=== PATIENT | female | born 1940 | race Caucasian/White ===

== ENCOUNTER 2016-06-15 16:15 | Inpatient (IN) | payer OTHER ==
[~2016-06-15] VITALS: Ht 157.5 cm; Wt 55.6 kg
[2016-06-15] MEDS ORDERED: ONDANSETRON 4 MG INJ IV STA (20:27)
[2016-06-15] MEDS ORDERED: morphine 2 MG INJ IV STA (20:27)
--- NOTE | 2016-06-15 20:59 | RADRPT ---
PROCEDURE: CT Head without. CLINICAL INDICATION: Headache, vomiting. TECHNIQUE: The study was performed utilizing a multi-slice, multidetector CT scanner. Direct spira l 1 mm axial sections were obtained through the head without the use of intravenous contrast materia l. Coronal and sagittal reformats were obtained. The images were reviewed on a PACS workstation. RADIATION DOSE: CTDIvol: 43.1 mGyDLP: 788.1 mGy-cm COMPARISON: No prior studies are available for comparison. FINDINGS: There is no intracranial hemorrhage, extra-axial fluid collection, mass lesion, midline shift or hyd rocephalus. There is mild prominence of the cerebral sulci, lateral and third ventricles. There is mild periventricular and subcortical white matter hypodensity. There is mild arteriosclerotic calc ification of the parasellar internal carotid arteries. The lopez-white matter differentiation is pre served. The basal cisterns are patent. The midline structures are intact. The orbits, calvarium a nd extracranial soft tissues are normal in appearance. There are severe inflammatory changes of the sphenoid sinus, with inspissated mucus. The floor of the sella is not well identified, possibly fro m the mid the chronic inflammatory changes. Underlying mass is not completely excluded. There are postoperative changes from prior sphenoid at the knee and multiple ethmoidectomies. There are moder ate inflammatory changes of the bilateral ethmoid air cells. The frontal sinuses are poorly pneumatized, normal variant. The mastoid air cells and middle ear cavities are normally aerated. T here are small calcifications involving the bilateral superior frontal lobes anteriorly the posterio r left frontal lobe, suggestive of remote prior neurocysticercosis. IMPRESSION: 1. No acute intracranial abnormality. No intracranial hemorrhage, extra-axial fluid collection, ma ss lesion or hydrocephalous. 2. Mild peripheral and central cerebral volume loss. 3. Mild periventricular and subcortical white matter hypodensity, likely related to chronic microan giopathic changes. 4. Postoperative changes from prior sphenoid surgery, with resection of the anterior wall of the sp henoids. There are moderate to severe inflammatory changes of the sphenoid sinus, with inspissated mucus. There is subsequent thinning of the floor of the sella, without definite evidence of mass or erosion. MRI may be helpful for further evaluation. 5. Small calcifications in the bilateral anterior frontal lobes, likely related to remote prior rhonda rocysticercosis. RPTAT: HGAS .Richard Kingston MD, MD Date Time Electronically viewed and signed by .Richard Kingston MD, MD on 06/15/2016 20:59 .S/
[2016-06-15 21:39] LABS: BASOPHIL # 0.1 10^3/ul (0.0-0.1); BASOPHILS % 1.2 % (0.0-2.0); EOSINOPHILS # 0.3 10^3/ul (0.0-0.5); EOSINOPHILS % 3.6 % (0.0-7.0); HEMATOCRIT 37.5 % (37.0-47.0); HEMOGLOBIN 12.3 g/dl (12.0-16.0); LYMPHOCYTES # 1.4 10^3/ul (0.8-2.9); LYMPHOCYTES % 14.5 % (15.0-51.0); MEAN CORPUSCULAR HEMOGLOBIN 29.1 pg (29.0-33.0); MEAN CORPUSCULAR HGB CONC 32.8 g/dl (32.0-37.0); MEAN CORPUSCULAR VOLUME 88.6 fl (82.0-101.0); MEAN PLATELET VOLUME 8.7 fl (7.4-10.4); MONOCYTE # 0.7 10^3/ul (0.3-0.9); MONOCYTES % 6.8 % (0.0-11.0); NEUTROPHIL # 7.1 10^3/ul (1.6-7.5); NEUTROPHILS % 73.9 % (39.0-77.0); PLATELET COUNT 416 10^3/UL (140-440); RED BLOOD COUNT 4.23 10^6/ul (4.20-5.40); UNCORRECTED WBC 9.6 10^3/ul (4.8-10.8); WHITE BLOOD COUNT 9.6 10^3/ul (4.8-10.8)
[2016-06-15 21:41] LABS: CONDITION 1
[2016-06-15 21:55] LABS: ALBUMIN 3.7 g/dl (3.3-4.9); POTASSIUM 3.8 mmol/L (3.5-5.1)
[2016-06-15 21:57] LABS: ALBUMIN/GLOBULIN RATIO 1.02; BILIRUBIN,INDIRECT 0.2 mg/dl (0-1.1); BILIRUBIN,TOTAL 0.2 mg/dl (0.2-1.3); CREATININE 0.56 mg/dl (0.44-1.00); TOTAL PROTEIN 7.3 g/dl (6.1-8.1)
[2016-06-15 21:58] LABS: CALCIUM 9.2 mg/dl (8.4-10.2)
[2016-06-15] MEDS ORDERED: OMEP20CA16 PO (22:05)
[2016-06-15] MEDS ORDERED: BENA20TA48 PO (22:05)
[2016-06-15] MEDS ORDERED: NAPR220T30 PO (22:07)
[2016-06-15] MEDS ORDERED: SOD CHLORIDE 0.9% 1,000 ML IV ONE (22:17)
[2016-06-15] MEDS ORDERED: ACETAMINOPHEN 325 MG TAB PO PRN (23:00)
[2016-06-15] MEDS ORDERED: ONDANSETRON 4 MG INJ IV PRN (23:00)
--- NOTE | 2016-06-15 23:00 | ERA ---
ER Documentation Chief Complaint Date/Time DATE: 06/15/16 TIME: 22:58 Chief Complaint VOMITING,HEADACHE,S/P PITUITARY GLAND SURGERY 2 WEEKS AGO. HPI 75-year-old female, hypertensive with history of pituitary adenoma status post resection 06/03/2016 ambulatory to the ED for evaluation of headache with nausea , vomiting and diarrhea. She has been having ongoing, generalized, mild to moderate headache since the surgery that I believe by Naprosyn but worsening over the last 2 days with nausea, and multiple episodes of nonbloody, nonbilious emesis and watery diarrhea. No ill contacts, recent travel or spelled food exposure. No visual changes, focal weakness or numbness. Denies chest pain or palpitations. No shortness of breath or cough. Denies abdominal pain or back pain. No dysuria, polyuria hematuria. No fevers or chills per ROS All systems reviewed and are negative except as per history of present illness. Medications Home Meds Reported Medications Naproxen* (Naproxen*) 220 Mg Tablet, 220 MG PO DAILY Y for PAIN, TAB 06/15/16 Omeprazole* (Omeprazole*) 20 Mg Capsule.dr, 20 MG PO DAILY Y for PRN, #30 CAP 06/15/16 Benazepril Hcl* (Benazepril Hcl*) 20 Mg Tablet, 20 MG PO QAM, #30 TAB 06/15/16 Allergies Allergies: Coded Allergies: Penicillins (Unverified Allergy, Unknown, 06/15/16) Uncoded Allergies: PCN (Allergy, Intermediate, facial swelling, 06/15/16) PMhx/Soc Reviewed in chart. As per HPI History of Surgery: Yes (pituary gland(06/03/2016), back surgery) Anesthesia Reaction: No Hx Neurological Disorder: No Hx Respiratory Disorders: No Hx Cardiac Disorders: Yes (HTN) Hx Psychiatric Problems: No Hx Miscellaneous Medical Probl: No Hx Alcohol Use: No Hx Substance Use: No Hx Tobacco Use: No Smoking Status: Never smoker FmHx No stroke or cancer Physical Exam Vitals Vital Signs Date Time Temp Pulse Resp B/P Pulse Ox O2 Delivery O2 Flow Rate FiO2 06/15/16 16:48 98.2 96 18 174/88 98 Physical Exam Const: [] Head: Atraumatic Eyes: Normal Conjunctiva ENT: Normal External Ears, Nose and Mouth. Neck: Full range of motion..~ No meningismus. Resp: Clear to auscultation bilaterally Cardio: Regular rate and rhythm, no murmurs Abd: Soft, non tender, non distended. Normal bowel sounds Skin: No petechiae or rashes Back: No midline or flank tenderness Ext: No cyanosis, or edema Neur: Awake and alert Psych: Normal Mood and Affect Result Diagram: 06/16/1661706/16/1618 Results 24 hrs Laboratory Tests Test 06/15/16 20:56 Alanine Aminotransferase (ALT/SGPT) 25IU/L Albumin 3.7g/dl Albumin/Globulin Ratio 1.02 Alkaline Phosphatase 109IU/L Anion Gap 14 Aspartate Amino Transf (AST/SGOT) 32IU/L Basophils # 0.110^3/ul Basophils % 1.2% Blood Urea Nitrogen 9mg/dl Calcium Level 9.2mg/dl Carbon Dioxide Level 26mmol/L Chloride Level 89mmol/L Creatinine 0.56mg/dl Direct Bilirubin 0.00mg/dl Eosinophils # 0.310^3/ul Eosinophils % 3.6% Globulin 3.60g/dl Glucose Level 106mg/dl Hematocrit 37.5% Hemoglobin 12.3g/dl Indirect Bilirubin 0.2mg/dl Lipase 120U/L Lymphocytes # 1.410^3/ul Lymphocytes % 14.5% Mean Corpuscular Hemoglobin 29.1pg Mean Corpuscular Hemoglobin Concent 32.8g/dl Mean Corpuscular Volume 88.6fl Mean Platelet Volume 8.7fl Monocytes # 0.710^3/ul Monocytes % 6.8% Neutrophils # 7.110^3/ul Neutrophils % 73.9% Nucleated Red Blood Cells # 0.010^3/ul Nucleated Red Blood Cells % 0.0/100WBC Platelet Count 88422^3/UL Potassium Level 3.8mmol/L Red Blood Count 4.2310^6/ul Red Cell Distribution Width 14.0% Sodium Level 125mmol/L Total Bilirubin 0.2mg/dl Total Protein 7.3g/dl White Blood Count 9.610^3/ul Current Medications Medications (Trade) Dose Ordered Sig/Johnathan Route PRN Reason Start Time Stop Time Status Last Admin Dose Admin Morphine Sulfate (morphine) 2 mg ONCE STAT IV 06/15/16 20:27 1/30/17 20:31 DC Ondansetron HCl 4 mg 4 mg ONCE STAT IV 06/15/16 20:27 06/15/16 20:31 DC 06/15/16 21:03 Sodium Chloride (NS) 1,000 ml @ 75 mls/hr [id number] ONCE IV 06/15/16 22:17 06/16/16 03:38 DC 06/15/16 23:13 Procedures/MDM DOCUMENTS REVIEWED: ED nurse, no prior records MEDICAL DECISION MAKIN-year-old female, hypertensive with history of pituitary adenoma status post resection 06/03/2016 ambulatory to the ED for evaluation of headache with nausea, vomiting and diarrhea. CT of the brain reveals postsurgical inflammatory changes. Patient with hyponatremia likely secondary to dehydration. Normal saline infusion initiated. Nausea, vomiting and diarrhea possibly due to gastroenteritis. C. difficile is pending. Abdominal exam is benign without rebound, guarding or other signs of peritonitis. No evidence for an occult infectious process. Patient be admitted to [facility] for further evaluation and management. Counseled patient and family regarding diagnosis, diagnostic results and plan for admission. PATIENT CARE TRANSITIONED: Time 22:50, Dr. Rothman Departure Diagnosis: Primary Impression: Hyponatremia Additional Impressions: Nausea vomiting and diarrhea History of pituitary adenoma Condition: JAKE Ramon MD Jun 15, 2016 23:00 PATIENT CARE TRANSITIONED: Time 22:50, Dr. Rothman Departure Diagnosis: Primary Impression: Hyponatremia Additional Impressions: Nausea vomiting and diarrhea History of pituitary adenoma Condition: JAKE Ramon MD Jun 15, 2016 23:00
[2016-06-15 23:39] VITALS: TEMP 98.2
[2016-06-15 23:59] LABS: POTASSIUM 4.1 mmol/L (3.5-5.1)
[2016-06-16] VITALS (11 sets, daily range): BP systolic 134–147; BP diastolic 76–83; PULSE 44–81; RESP 18–20; Ht 157.5 cm; Wt 55.6 kg
[2016-06-16 00:02] LABS: CREATININE 0.56 mg/dl (0.44-1.00)
[2016-06-16 00:03] LABS: CALCIUM 8.7 mg/dl (8.4-10.2)
[2016-06-16] MEDS ORDERED: hydrALAzine 20 MG INJ IV PRN (03:00)
[2016-06-16] MEDS ORDERED: ONDANSETRON 4 MG INJ IV PRN (03:00)
[2016-06-16] MEDS ORDERED: ACETAMINOPHEN 325 MG TAB PO PRN (03:00)
[2016-06-16] MEDS: SOD CHLORIDE 0.9% 1,000 ML IV SCH ×2 (03:49→12:47)
[2016-06-16] MEDS: SODIUM CHLORIDE 1 GM TAB PO ONE ×2 (04:00→06:47)
[2016-06-16 07:08] LABS: BASOPHIL # 0.1 10^3/ul (0.0-0.1); BASOPHILS % 0.9 % (0.0-2.0); EOSINOPHILS # 0.3 10^3/ul (0.0-0.5); EOSINOPHILS % 4.3 % (0.0-7.0); HEMATOCRIT 30.5 % (37.0-47.0); HEMOGLOBIN 10.4 g/dl (12.0-16.0); LYMPHOCYTES # 1.3 10^3/ul (0.8-2.9); LYMPHOCYTES % 20.3 % (15.0-51.0); MEAN CORPUSCULAR HEMOGLOBIN 29.7 pg (29.0-33.0); MEAN CORPUSCULAR HGB CONC 34.1 g/dl (32.0-37.0); MEAN CORPUSCULAR VOLUME 87.1 fl (82.0-101.0); MONOCYTE # 0.7 10^3/ul (0.3-0.9); MONOCYTES % 10.4 % (0.0-11.0); NEUTROPHIL # 4.1 10^3/ul (1.6-7.5); NEUTROPHILS % 64.1 % (39.0-77.0); PLATELET COUNT 396 10^3/UL (140-440); RED CELL DISTRIBUTION WIDTH 13.7 % (11.5-14.5); UNCORRECTED WBC 6.4 10^3/ul (4.8-10.8); WHITE BLOOD COUNT 6.4 10^3/ul (4.8-10.8)
[2016-06-16 07:34] LABS: ALBUMIN 2.9 g/dl (3.3-4.9)
[2016-06-16 07:35] LABS: POTASSIUM 4.2 mmol/L (3.5-5.1)
[2016-06-16 07:37] LABS: ALBUMIN/GLOBULIN RATIO 1.11; BILIRUBIN,INDIRECT 0.1 mg/dl (0-1.1); BILIRUBIN,TOTAL 0.1 mg/dl (0.2-1.3); CREATININE 0.57 mg/dl (0.44-1.00); TOTAL PROTEIN 5.5 g/dl (6.1-8.1)
[2016-06-16 07:38] LABS: CALCIUM 8.6 mg/dl (8.4-10.2); MAGNESIUM 1.6 mg/dl (1.7-2.5); PHOSPHORUS 3.1 mg/dl (2.5-4.9)
[2016-06-16 07:43] LABS: CONDITION 1
[2016-06-16 08:06] LABS: THYROID STIMULATING HORMONE 0.95 MIU/L (0.465-4.680)
--- NOTE | 2016-06-16 08:23 | HP ---
DATE OF ADMISSION: 06/15/2016 TIME SEEN: 2330 hours. CHIEF COMPLAINT: Headache, nausea and vomiting. HISTORY OF PRESENT ILLNESS: The patient is a 75-year-old female with a history of hypertension, saundra ritis, arthritis, depression and pituitary adenoma status post surgery 2 weeks ago, who presented to the emergency department with a headache, nausea, and nonbloody, nonbilious vomiting. Headache has been diffuse and has been going on since surgery and she has been taking Naprosyn for it, but over the past 2 days, it has been progressively worsening and was associated with multiple episodes of no nbilious, nonbloody emesis, well as watery diarrhea and as such, she was brought here for evaluation . She denied any focal weakness, numbness, seizure-like activity, visual disturbance, chest pain, s hortness of breath, fever, or chills. When she presented to the ER, blood pressure was 174/88, heart rate 96, respiratory rate 18, tempera ture 98.2, oxygen saturation 98% on room air. Laboratory value shows a sodium of 125 and a chloride of 89. Otherwise, CBC and CMP are unremarkable. A brain CT was done and it showed postop change a s well as moderate to severe inflammatory change of the sphenoid sinus with ____mucous and subsequen t thinning of the floor of the sella without definite evidence of mass or erosion. Small calcificat ion in the bilateral anterior frontal lobes likely from remote neurocysticercosis also noted, otherw ise no acute intracranial abnormality. The patient was given pain medication, antiemetics and admit lindsay for further management. REVIEW OF SYSTEMS: A 12-point review of systems performed is negative except as mentioned in HPI. PAST MEDICAL HISTORY: As per HPI. PAST SURGICAL HISTORY: Recent surgery for pituitary adenoma 2 weeks ago. Also, history of back omer marina and ankle surgery. SOCIAL HISTORY: Denied a history of tobacco, alcohol or illicit drug use. ALLERGIES: PENICILLIN. HOME MEDICATIONS: 1. Benazepril. 2. Naproxen. 3. Prilosec. PHYSICAL EXAMINATION: VITAL SIGNS: Stable. GENERAL: Sleepy but arousable, otherwise no acute distress. HEENT: Normocephalic, atraumatic. Pupils are reactive to light. CARDIOVASCULAR: Regular rate and rhythm. No extra sounds. LUNGS: Clear. ABDOMEN: Soft, nontender, nondistended. Positive bowel sounds. EXTREMITIES: No edema. NEUROLOGIC: No focal deficits. LABORATORY DATA: Sodium 125, chloride 89. Otherwise, CBC and CMP are within normal limits. IMAGING: CT of the head with results as mentioned in the HPI. IMPRESSION: 1. Headache, nausea, vomiting, likely secondary to recent pituitary surgery. 2. History of pituitary adenoma, status post surgery 2 weeks ago. 3. Hyponatremia. 4. Hypertension. 5. History of gastritis. 6. History of depression. The patient's symptom of headache and the associated vomiting likely secondary to the recent surgery and also possibly from the hyponatremia. Head CT, as mentioned earlier, with no acute intracranial findings. We will consider obtaining an MRI of the brain, but for now, we will do pain management as well as antiemetics, as needed. We will place on normal saline for correction of her hyponatremi a. We will consider nephrology consult for the hyponatremia and also endocrine consult as needed. She will be evaluated by physical therapy prior to discharge. Further workup and management per clinical course. Dictated By: JACEK TRINIDAD/MARK Conf#: [id number] DID#: [id number]
[2016-06-16] MEDS: FAMOTIDINE 20 MG TAB PO SCH ×2 (08:51→21:37)
[2016-06-16] MEDS: BENAZEPRIL 20 MG TAB PO SCH (08:51)
[2016-06-16] MEDS ORDERED: MAGNESIUM OXIDE 400 MG TAB PO ONE (10:00)
[2016-06-16 12:19] LABS: ADD UMIC YES; URINE BILIRUBIN (Dip) NEGATIVE (NEGATIVE); URINE BLOOD (Dip) NEGATIVE (NEGATIVE); URINE COLOR LT. YELLOW (YELLOW); URINE GLUCOSE (Dip) NEGATIVE (NEGATIVE); URINE KETONES (Dip) NEGATIVE (NEGATIVE); URINE LEUKOCYTE ESTERASE (Dip) TRACE (NEGATIVE); URINE NITRITE (Dip) NEGATIVE (NEGATIVE); URINE TOTAL PROTEIN (Dip) NEGATIVE (NEGATIVE); URINE UROBILINOGEN (Dip) 0.2 E.U./dL (0.1-1.0)
[2016-06-16 12:32] LABS: URINE RBCS 0-2 /HPF (0)
--- NOTE | 2016-06-16 12:54 | CONS ---
DATE OF ADMISSION: 06/15/2016 DATE OF CONSULTATION: NEPHROLOGY CONSULTATION REASON FOR CONSULTATION: Hyponatremia. REQUESTING PHYSICIAN: Dr. Rothman HISTORY OF PRESENT ILLNESS: This is a 75-year-old female with a past medical history of hypertensio n, gastritis, arthritis, depression, history of pituitary adenoma, status post surgical resection ap proximately 2 weeks ago who presents to the emergency room with headache, nausea and nonbloody bilio us. The patient stated since the surgery she has been having ongoing headaches, but has been stable , tolerating p.o.'s; however, over the last 2 days the patient noted to have a progressively worseni ng headache associated with emesis as well as diarrhea. The patient was told to come into the emerg ency room for evaluation. Upon arrival in the emergency room, the patient was noted to have blood p ressure 174/88, heart rate is 96, respirations 18, temperature 98.2. In the emergency room, the pat ient noted to be hyponatremic with sodium 125. She was started on IV fluids, given antiemetics, adm itted to telemetry for further evaluation. In terms of the patient's sodium history, the patient's daughter and the patient deny any previous h istory of hyponatremia prior to her pituitary surgery. The patient states over the last 2 days that she has been eating appropriately until 1 to 2 days prior to admission when she was having headache s and complaining of emesis. She otherwise denies any seizure, any hematuria, any rashes, any froth y urine. PAST MEDICAL HISTORY: As stated above, history of hypertension, gastritis, arthritis, depression. PAST SURGICAL HISTORY: Status post pituitary adenoma removal 2 weeks ago. FAMILY HISTORY: No family history of kidney disease or heart disease. SOCIAL HISTORY: Does not drink, smoke, or do drugs. MEDICATIONS: The patient's medications have been reviewed. ALLERGIES: ALLERGIC TO PENICILLIN. REVIEW OF SYSTEMS: A 14-point review of systems was conducted. Pertinent positives as stated in HP I, otherwise negative. PHYSICAL EXAMINATION: VITAL SIGNS: Blood pressure is 139/76, respirations 20, pulse 73, temperature 98.0. HEENT: Head is normocephalic. NECK: Supple. HEART: Regular rate. LUNGS: Show diminished breath sounds at base. ABDOMEN: Soft, nontender to palpation. No rebound or guarding. EXTREMITIES: Negative for clubbing, cyanosis, no edema. DERMATOLOGIC: No rashes. MUSCULOSKELETAL: No joint effusions. NEUROLOGIC: No focal deficits. MEDICATIONS: Reviewed. LABORATORY DATA: Shows sodium 126, respiration 4.2, chloride 94, BUN 6, creatinine 0.56, magnesium 1.6. White count 6.4, hemoglobin 10.4, hematocrit 30.5, platelet count 396. CT scan of the head is reviewed. ASSESSMENT AND PLAN: This is a 75-year-old female who presents with: 1. Hyponatremia, underlying etiology is unclear. Differential is broad, including possible seconda ry adrenal insufficiency resulting hypercortisol levels which would increase antidiuretic hormone se cretion, pain-associated hyponatremia due syndrome of inappropriate antidiuretic hormone secretion. Possible volume depletion due to decreased oral intake is also a consideration. Plan at this point is to do a full workup. We will check a urine sodium, urine osmolarity, serum osmolarity. We will check a uric acid level. Will check an a.m. and random cortisol level. The patient's sodium level s have been stable on IV fluids. Will continue to monitor serial sodium levels q.4 hours. If sodiu m levels, however, should further decline, would consider discontinuing normal saline. Additionally , if patient should develop overt seizures or worsening headaches, would consider 3% sodium chloride . At this point, will monitor closely. 2. Nausea, vomiting, headaches. Etiology may be secondary to recent surgery, possible hyponatremia as a contributing factor. At this point, will continue current treatment plan. Continue supportiv e care, continue antiemetic therapy and monitor closely. 3. History of hypertension. Continue current blood pressure regimen at this time. 4. History of gastritis. Continue proton pump inhibitor. 5. Hypomagnesemia. We will replete with magnesium oxide. Thank you, Dr. Rothman, for this interesting consultation. It will be a pleasure to follow the patient with you throughout the hospital course. Dictated By: MAYA HE/MARK Conf#: [id number] DID#: [id number]
--- NOTE | 2016-06-16 17:15 | PN ---
Date/Time of Note Date/Time of Note DATE: 06/16/16 TIME: 17:11 Assessment/Plan VTE Prophylaxis VTE Prophylaxis Intervention: SCD's Lines/Catheters IV Catheter Type (from Nrs): Peripheral IV Assessment/Plan Chief Complaint/Hosp Course IMPRESSION: 1. Headache, nausea, vomiting, likely secondary to recent pituitary surgery versus hyponatremia Nephrology and endocrinology has been consulted We will consider obtaining an MRI of the brain if no improvement, but for now , we will do pain management as well as antiemetics, as needed. 2. History of pituitary adenoma, status post surgery 2 weeks ago. Endocrinology has been consulted 3. Hyponatremia. Continue IV fluid, follow-up electrolytes in a.m. 4. Hypertension. Well-controlled on medical management 5. History of gastritis. Continue PPI 6. History of depression. Further workup and management per clinical course. Problems: Subjective 24 Hr Interval Summary Free Text/Dictation Patient denies of any headache or dizziness No nausea, vomiting or diarrhea Denies any chest pain or shortness of breath Exam/Review of Systems Vital Signs Vitals Vital Signs Date Time Temp Pulse Resp B/P Pulse Ox O2 Delivery O2 Flow Rate FiO2 06/16/16 16:07 81 06/16/16 16:00 98.8 20 138/77 98 Room Air Exam General: The patient is well-developed, Not in acute distress. HEENT: Atraumatic, normocephalic. The pupils are equal and round . Neck: Supple with full range of motion. Chest: Normal expansion of the thorax during inspiration Lungs: Clear to auscultation bilaterally Heart: Normal S1-S2, Regular rhythm and rate. Abdomen: Soft , nontender, nondistended , bowel sounds are present. Extremities: Normal to inspection, no edema no cyanosis Neurologic: Normal mental status,The patient is awake, alert and oriented . Results Result Diagram: 06/16/16 0618 06/16/16 1154 Results 24 hrs Laboratory Tests Test 06/15/16 20:56 06/15/16 23:33 06/16/16 06:18 06/16/16 07:10 Alanine Aminotransferase (ALT/SGPT) 25 28 Albumin 3.7 2.9 L Albumin/Globulin Ratio 1.02 1.11 Alkaline Phosphatase 109 94 Anion Gap 14 14 11 Aspartate Amino Transf (AST/SGOT) 32 24 Basophils # 0.1 0.1 Basophils % 1.2 0.9 Blood Urea Nitrogen 9 8 6 L Calcium Level 9.2 8.7 8.6 Carbon Dioxide Level 26 25 25 Chloride Level 89 L 89 L 94 L Creatinine 0.56 0.56 0.57 Direct Bilirubin 0.00 0.00 Eosinophils # 0.3 0.3 Eosinophils % 3.6 4.3 Globulin 3.60 H 2.60 Glucose Level 106 92 79 Hematocrit 37.5 30.5 L Hemoglobin 12.3 10.4 L Indirect Bilirubin 0.2 0.1 Lipase 120 Lymphocytes # 1.4 1.3 Lymphocytes % 14.5 L 20.3 Mean Corpuscular Hemoglobin 29.1 29.7 Mean Corpuscular Hemoglobin Concent 32.8 34.1 Mean Corpuscular Volume 88.6 87.1 Mean Platelet Volume 8.7 8.0 Monocytes # 0.7 0.7 Monocytes % 6.8 10.4 Neutrophils # 7.1 4.1 Neutrophils % 73.9 64.1 Nucleated Red Blood Cells # 0.0 0.0 Nucleated Red Blood Cells % 0.0 0.0 Platelet Count 416 396 Potassium Level 3.8 4.1 4.2 Red Blood Count 4.23 3.50 L Red Cell Distribution Width 14.0 13.7 Sodium Level 125 L 124 L 126 L Total Bilirubin 0.2 0.1 L Total Protein 7.3 5.5 #L White Blood Count 9.6 6.4 # Free Thyroxine Index 1.45 Magnesium Level 1.6 L Phosphorus Level 3.1 Thyroid Stimulating Hormone (TSH) 0.950 Thyroxine (T4) 5.0 L Triiodothyronine (T3) Uptake 29.0 Urine Bilirubin NEGATIVE Urine Clarity CLEAR Urine Color LT. YELLOW Urine Glucose NEGATIVE Urine Hemoglobin NEGATIVE Urine Ketones NEGATIVE Urine Leukocyte Esterase TRACE H Urine Microscopic RBC 0-2 Urine Microscopic WBC 2-5 Urine Nitrite NEGATIVE Urine Random Creatinine 29.68 Urine Random Sodium 83 Urine Specific Kaiser 1.015 Urine Total Protein Urine Urobilinogen 0.2 E.U./dL Urine pH 7.0 Test 06/16/16 11:54 Osmolality 255 L Sodium Level 128 L Uric Acid 3.1 Medications Medications Current Medications Benazepril HCl (Lotensin) 20 mg QAM PO Last administered on 06/16/16t 08:51; Admin Dose 20 MG; Start 06/16/16 at 09:00 Famotidine (Pepcid) 20 mg BID PO Last administered on 06/16/16 08:51; Admin Dose 20 MG; Start 06/16/16 at 09:00 Ondansetron HCl (Zofran Inj) 4 mg Q6H PRN IV NAUSEA AND/OR VOMITING; Start at 03:00 Acetaminophen (Tylenol Tab) 650 mg Q6H PRN PO PAIN AND OR ELEVATED TEMP; Start 06/16/16 at 03:00 Hydralazine HCl 10 mg 10 mg Q4H PRN IV ELEVATED BLOOD PRESSURE; Start 06/16/16 at 03:00 Sodium Chloride (NS) 1,000 ml @ 100 mls/hr Q10H IV Last administered on 12:47; Admin Dose 100 MLS/HR; Start 06/16/16 at 03:00 KARSON FERMIN MD Jun 16, 2016 17:15
--- NOTE | 2016-06-16 18:09 | CONS ---
Date/Time of Note Date/Time of Note DATE: 06/16/16 TIME: 17:57 Assessment/Plan Assessment/Plan Problems: (1) Nausea vomiting and diarrhea Status: Resolved (2) Hyponatremia Status: Acute Comment: Hyponatremia is not uncommon following transsphenoidal craniotomy for pituitary surgery. Agree with nephrology to check cortisol, however doubt adrenal insufficiency in this case, especially given presenting BP. Pt. likely suffering from SIADH as a common post-op complication. From UpToDate: "Hyponatremia is also a common late complication of transsphenoidal pituitary surgery, occurring in 21 to 35 percent of cases [42,43]. Although relative cortisol deficiency may contribute, the major cause is inappropriate ADH release from the injured posterior pituitary gland. The fall in the plasma sodium concentration is most severe on the sixth to seventh postoperative day. This form of isolated hyponatremia (or isolated second phase) appears to be a subset of the classic triphasic cycle in which initial polyuria is followed by transient SIADH and then either recovery or, in severe cases, a third phase of permanent central diabetes insipidus" Will therefore d/c IVF and place pt. on 900 mL/24 hour (600 mL/m2 BSA) fluid restriction. Salt tablets should not be necessary so will d/c these. Reeval [ Na] daily. Suspect will normalize w/i 48 hours. Will f/u serum cortisol levels. 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 Had MRI and was found to have a pituitary adenoma. Pt. and daughter do not know the size. Evaluation for hormonal secretion was (- ). Pt. sent for transsphenoidal craniotomy which was done 13 days ago. Pt. went home on day after surgery to stay under 10 glasses of water a day and was given salt tablets. On day after going home pt. developed bifrontal pounding headache. No dizziness. This persisted for the next 10 days. 2 days ago developed vomiting and diarrhea which continued until yesterday when daughter decided to bring her to ER. Constitutional: improved, no complaints Eyes: no complaints ENT: no complaints Respiratory: no complaints Cardiovascular: no complaints Gastrointestinal: diarrhea, nausea, vomiting Genitourinary: no complaints Musculoskeletal: no complaints Neurologic: headache Psychological: nl mood/affect, no complaints Past Medical History Medical History: hypertension Past Surgical History Past Surgical Hx: other (lumbosacral spine surgery, L ankle surgery) Family History Significant Family History: hypertension (sister) Social History b. [facility], in [facility] 16 y, , 10 children, lifelong unemployed Alcohol Use: none Smoking Status: Never smoker Drug Use: none Exam/Review of Systems Vital Signs Vitals VS - Last 72 Hours, by Label Date Time Temp Pulse Resp B/P Pulse Ox O2 Delivery O2 Flow Rate FiO2 06/16/16 16:07 81 06/16/16 16:00 98.8 44 20 138/77 98 Room Air 06/16/16 12:04 75 06/16/16 12:00 97.6 77 20 136/83 98 Room Air 06/16/16 08:04 71 06/16/16 08:00 98.0 73 20 139/76 98 Room Air 06/16/16 04:00 98.3 73 20 147/78 98 Room Air 06/16/16 04:00 75 06/16/16 02:08 75 06/16/16 02:00 97.2 74 134/83 97 Room Air 06/15/16 23:39 98.2 78 18 148/84 98 06/15/16 16:48 98.2 96 18 174/88 98 Vital Signs Date Time Temp Pulse Resp B/P Pulse Ox O2 Delivery O2 Flow Rate FiO2 06/16/16 16:07 81 06/16/16 16:00 98.8 20 138/77 98 Room Air Exam Constitutional: alert, oriented, well developed Psych: nl mood/affect, no complaints Eyes: EOMI, PERRL, nl conjunctiva, nl lids, nl sclera ENMT: mucosa pink and moist, nl external ears & nose Neck: non-tender, supple, No bruits, No masses, No thyromegaly Respiratory: clear to auscultation, normal air movement Cardiovascular: nl pulses, regular rate and rhythm, No edema, No murmurs/extra sounds, No rub Gastrointestinal: bowel sounds, nl liver, spleen, non-tender, soft, No mass, No rebound or guarding Musculoskeletal: nl extremities to inspection Extremities: normal pulses, No clubbing, No cyanosis, No edema Neurological: EMT I/85 II-XII intact, nl mental status, nl speech, nl strength Results Result Diagram: 06/16/16 0618 06/16/16 1645 Results 24 hrs Laboratory Tests Test 06/15/16 20:56 06/15/16 23:33 06/16/16 06:18 06/16/16 07:10 Alanine Aminotransferase (ALT/SGPT) 25 28 Albumin 3.7 2.9 L Albumin/Globulin Ratio 1.02 1.11 Alkaline Phosphatase 109 94 Anion Gap 14 14 11 Aspartate Amino Transf (AST/SGOT) 32 24 Basophils # 0.1 0.1 Basophils % 1.2 0.9 Blood Urea Nitrogen 9 8 6 L Calcium Level 9.2 8.7 8.6 Carbon Dioxide Level 26 25 25 Chloride Level 89 L 89 L 94 L Creatinine 0.56 0.56 0.57 Direct Bilirubin 0.00 0.00 Eosinophils # 0.3 0.3 Eosinophils % 3.6 4.3 Globulin 3.60 H 2.60 Glucose Level 106 92 79 Hematocrit 37.5 30.5 L Hemoglobin 12.3 10.4 L Indirect Bilirubin 0.2 0.1 Lipase 120 Lymphocytes # 1.4 1.3 Lymphocytes % 14.5 L 20.3 Mean Corpuscular Hemoglobin 29.1 29.7 Mean Corpuscular Hemoglobin Concent 32.8 34.1 Mean Corpuscular Volume 88.6 87.1 Mean Platelet Volume 8.7 8.0 Monocytes # 0.7 0.7 Monocytes % 6.8 10.4 Neutrophils # 7.1 4.1 Neutrophils % 73.9 64.1 Nucleated Red Blood Cells # 0.0 0.0 Nucleated Red Blood Cells % 0.0 0.0 Platelet Count 416 396 Potassium Level 3.8 4.1 4.2 Red Blood Count 4.23 3.50 L Red Cell Distribution Width 14.0 13.7 Sodium Level 125 L 124 L 126 L Total Bilirubin 0.2 0.1 L Total Protein 7.3 5.5 #L White Blood Count 9.6 6.4 # Free Thyroxine Index 1.45 Magnesium Level 1.6 L Phosphorus Level 3.1 Thyroid Stimulating Hormone (TSH) 0.950 Thyroxine (T4) 5.0 L Triiodothyronine (T3) Uptake 29.0 Urine Bilirubin NEGATIVE Urine Clarity CLEAR Urine Color LT. YELLOW Urine Glucose NEGATIVE Urine Hemoglobin NEGATIVE Urine Ketones NEGATIVE Urine Leukocyte Esterase TRACE H Urine Microscopic RBC 0-2 Urine Microscopic WBC 2-5 Urine Nitrite NEGATIVE Urine Random Creatinine 29.68 Urine Random Sodium 83 Urine Specific [place] 1.015 Urine Total Protein Urine Urobilinogen 0.2 E.U./dL Urine pH 7.0 Test 06/16/16 11:54 06/16/16 16:45 Osmolality 255 L Sodium Level 128 L 128 L Uric Acid 3.1 Medications Medications Current Medications Benazepril HCl (Lotensin) 20 mg QAM PO Last administered on 06/16/16 08:51; Admin Dose 20 MG; Start 06/16/16 at 09:00 Famotidine (Pepcid) 20 mg BID PO Last administered on 06/16/16 08:51; Admin Dose 20 MG; Start 06/16/16 at 09:00 Ondansetron HCl (Zofran Inj) 4 mg Q6H PRN IV NAUSEA AND/OR VOMITING; Start at 03:00 Acetaminophen (Tylenol Tab) 650 mg Q6H PRN PO PAIN AND OR ELEVATED TEMP; Start 06/16/16 at 03:00 Hydralazine HCl (Apresoline) 10 mg Q4H PRN IV ELEVATED BLOOD PRESSURE; Start at 03:00 KIANNA SUAZO MD Jun 16, 2016 18:09
[2016-06-17] VITALS (12 sets, daily range): BP systolic 135–172; BP diastolic 59–91; PULSE 69–105; RESP 17–20
[2016-06-17 07:27] LABS: POTASSIUM 3.7 mmol/L (3.5-5.1)
[2016-06-17 07:30] LABS: CREATININE 0.6 mg/dl (0.44-1.00)
[2016-06-17 07:31] LABS: CALCIUM 8.6 mg/dl (8.4-10.2); MAGNESIUM 1.7 mg/dl (1.7-2.5); PHOSPHORUS 3.1 mg/dl (2.5-4.9)
[2016-06-17] MEDS: BENAZEPRIL 20 MG TAB PO SCH (08:23)
[2016-06-17] MEDS: FAMOTIDINE 20 MG TAB PO SCH ×2 (08:23→20:23)
[2016-06-17] MEDS: HYDROCORTISONE 20 MG TAB PO SCH (09:30)
[2016-06-17 10:58] LABS: BASOPHIL # 0.1 10^3/ul (0.0-0.1); BASOPHILS % 2.2 % (0.0-2.0); EOSINOPHILS # 0.2 10^3/ul (0.0-0.5); EOSINOPHILS % 4.5 % (0.0-7.0); HEMATOCRIT 30.4 % (37.0-47.0); HEMOGLOBIN 10.1 g/dl (12.0-16.0); LYMPHOCYTES # 1.5 10^3/ul (0.8-2.9); LYMPHOCYTES % 28.8 % (15.0-51.0); MEAN CORPUSCULAR HEMOGLOBIN 29.5 pg (29.0-33.0); MEAN CORPUSCULAR HGB CONC 33.2 g/dl (32.0-37.0); MEAN PLATELET VOLUME 8.3 fl (7.4-10.4); MONOCYTE # 0.8 10^3/ul (0.3-0.9); MONOCYTES % 14.6 % (0.0-11.0); NEUTROPHIL # 2.6 10^3/ul (1.6-7.5); NEUTROPHILS % 49.9 % (39.0-77.0); PLATELET COUNT 403 10^3/UL (140-440); RED BLOOD COUNT 3.42 10^6/ul (4.20-5.40); RED CELL DISTRIBUTION WIDTH 14.3 % (11.5-14.5); UNCORRECTED WBC 5.2 10^3/ul (4.8-10.8); WHITE BLOOD COUNT 5.2 10^3/ul (4.8-10.8)
[2016-06-17 10:59] LABS: CONDITION 1
--- NOTE | 2016-06-17 11:44 | PN ---
DATE: 06/16/2016 SUBJECTIVE: The patient is stable, no acute events noted overnight, no hemoptysis, hematemesis, hem atochezia. OBJECTIVE: VITAL SIGNS: Blood pressure is 172/91, respirations 17, pulse 83, temperature 97.9. HEENT: Head is normocephalic. NECK: Supple. HEART: Regular rate. LUNGS: Show diminished breath sounds at the base. ABDOMEN: Soft, nontender to palpation. No rebound or guarding. EXTREMITIES: Negative for clubbing, cyanosis. No edema. DERMATOLOGIC: No rashes. MUSCULOSKELETAL: No joint effusions. NEUROLOGIC: No change in exam. MEDICATIONS: The patient's medications have been reviewed. LABORATORY DATA: Showed sodium 131, potassium 2.7, chloride 98, BUN 6, creatinine 0.6____. Uric ac id 3.1. Random cortisol level is 1.2. White count 6.4, hemoglobin 10.4, hematocrit 30.5, platelet count 396. Urine sodium levels 83, urine osmolarity is pending. ASSESSMENT AND PLAN: 1. Hyponatremia, etiology is unclear. The patient's urinalysis suggest volume replete state, possi ronald SIADH. The patient, however, does have low cortisol levels. Unclear if there is a component of adrenal insufficiency. The patient's sodium levels have also improved after receiving IV fluids. A t this point, would agree with endocrinology colleagues. Continue the patient on free water restric tion. We will follow up urine osmolarity level. Would defer any steroid therapy to endocrinology. W e will continue to monitor serial sodium levels. 2. Nausea, vomiting, headaches. Etiology is likely secondary to recent pituitary adenoma resection . Symptoms have improved. Continue to monitor. 3. History of hypertension. Continue current blood pressure regimen. 4. History of gastritis. Continue proton pump inhibitor. 5. History of pituitary adenoma status post resection. Dictated By: MAYA HE/MARK Conf#: [id number] DID#: [id number]
--- NOTE | 2016-06-17 13:41 | PN ---
Date/Time of Note Date/Time of Note DATE: 06/17/16 TIME: 13:39 Assessment/Plan VTE Prophylaxis VTE Prophylaxis Intervention: SCD's Lines/Catheters IV [facility]from [facility] Peripheral IV Urinary Cath still in place: No Assessment/Plan Chief Complaint/Hosp Course Assessment and plan 1. Cephalgia. Suspect secondary to hyponatremia versus recent pituitary surgery. Improved at this time. We'll provide with analgesics as needed 2. History of pituitary adenoma status post resection 2 weeks ago. Hydroelectric Production Technician following. Noted with low cortisol levels. Continue on hydrocortisone per recommendations 3. Hyponatremia. Biophysics Scientist following. Continue on fluid restriction. Improving at present 4. History of gastritis. Continue on PPI medication 5. History of major depression. Stable at present we'll monitor Disposition and plan: Continue on hydrocortisone. Analgesics for cephalgia. Discharge when cleared by consultants Discussed but of care with Dr. Cuevas Problems: Subjective 24 Hr Interval Summary Free Text/Dictation No signs or symptoms of distress. Comfortable at this time. Exam/Review of Systems Vital Signs Vitals Vital Signs Date Time Temp Pulse Resp B/P Pulse Ox O2 Delivery O2 Flow Rate FiO2 06/17/16 12:11 79 06/17/16 12:00 98.1 18 144/82 96 06/17/16 00:00 Room Air Intake and Output 06/16/16 06/16/16 06/17/16 15:00 23:00 07:00 Intake Total 500 ml 1780 ml 150 ml Output Total 300 ml Balance 200 ml 1780 ml 150 ml Exam General: No acute signs or symptoms of distress Eyes: pupils equal round, Anicteric sclera Neck: Supple nontender, no JVD Cardiac: S1, S2 auscultated, regular rhythm and rate Pulmonary: No coarse rhonchi or breathing auscultated GI: Abdomen soft nontender nondistended, bowel sounds active Extremities: No edema bilateral lower extremities Skin: Clean dry and intact Neurologic: Alert to person place and time and situation] Results Result Diagram: 06/17/16 0620 06/17/16 0620 Results 24 hrs Laboratory Tests Test 06/16/16 16:45 06/17/16 06:20 06/17/16 06:45 Random Cortisol 1.0 1.2 Sodium Level 128 L 131 L Anion Gap 12 Basophils # 0.1 Basophils % 2.2 H Blood Urea Nitrogen 6 L Calcium Level 8.6 Carbon Dioxide Level 24 Chloride Level 99 Creatinine 0.60 Eosinophils # 0.2 Eosinophils % 4.5 Glucose Level 77 Hematocrit 30.4 L Hemoglobin 10.1 L Lymphocytes # 1.5 Lymphocytes % 28.8 Magnesium Level 1.7 Mean Corpuscular Hemoglobin 29.5 Mean Corpuscular Hemoglobin Concent 33.2 Mean Corpuscular Volume 89.0 Mean Platelet Volume 8.3 Monocytes # 0.8 Monocytes % 14.6 H Neutrophils # 2.6 Neutrophils % 49.9 Nucleated Red Blood Cells # 0.0 Nucleated Red Blood Cells % 0.0 Phosphorus Level 3.1 Platelet Count 403 Potassium Level 3.7 Red Blood Count 3.42 L Red Cell Distribution Width 14.3 White Blood Count 5.2 Urine Osmolality 323 Medications Medications Current Medications Benazepril HCl (Lotensin) 20 mg QAM PO Last administered on 06/17/16 08:23; Admin Dose 20 MG; Start 06/16/16 at 09:00 Famotidine (Pepcid) 20 mg BID PO Last administered on 06/17/16 08:23; Admin Dose 20 MG; Start 06/16/16 at 09:00 Ondansetron HCl (Zofran Inj) 4 mg Q6H PRN IV NAUSEA AND/OR VOMITING; Start at 03:00 Acetaminophen (Tylenol Tab) 650 mg Q6H PRN PO PAIN AND OR ELEVATED TEMP; Start 06/16/16 at 03:00 Hydralazine HCl (Apresoline) 10 mg Q4H PRN IV ELEVATED BLOOD PRESSURE; Start at 03:00 Hydrocortisone (Cortef) 20 mg AM PO ; Start 06/17/16 at 09:30; Status UNV Hydrocortisone (Cortef) 10 mg QPM@1730 PO ; Start 06/17/16 at 17:30 PHUC LOZANO Jun 17, 2016 13:41
[2016-06-17 15:53] LABS: CREATININE, RANDOM URINE 35 mg/dL (20-320); MICROALBUMIN <0.2 mg/dL; MICROALBUMIN/CREATININE RATIO NOTE (<30)
[2016-06-17] MEDS ORDERED: HYDROCORTISONE 5 MG TAB PO SCH (16:00)
--- NOTE | 2016-06-17 19:36 | CONS ---
Date/Time of Note Date/Time of Note DATE: 06/17/16 TIME: 19:31 Assessment/Plan Assessment/Plan Problems: (1) Hyponatremia Status: Acute Comment: Improving daily. Now in acceptable range although still below normal. Cont. fluid restriction. (2) SIADH (syndrome of inappropriate ADH production) Status: Acute Comment: Elevated urine osmolality c/w SIADH although picture is more complicated (see below). Fluid restriction has been effective. Will continue. (3) Secondary adrenal insufficiency Status: Acute Comment: Cortisol nearly undetectable x 2. ACTH sent and is pending. This is consistent w/ poor adrenal function and may have been responsible for pt.'s symptoms. Difficult to say at this time if this is temporary or permanent as a complication of surgery. Will for now start hydrocortisone 20 mg qam and 10 mg qpm and reevaluate tomorrow. Assuming pt. doing well, pt. likely will be ready for d/c tomorrow. Pt. does have scheduled f/u w/ an endo. Consultation Date/Type/Reason Admit Date/Time Jun 15, 2016 at 22:57 Initial Consult Date 06/16/16 Type of Consultation: Endocrinology Reason for Consultation Hyponatremia s/p pituitary adenoma resection Referring Provider: KARSON FERMIN MD 24 HR Interval Summary Constitutional: improved, no complaints Detailed Summary Respiratory: no complaints Cardiovascular: no complaints Gastrointestinal: no complaints, No decreased appetite, No nausea, No vomiting Genitourinary: no complaints Musculoskeletal: no complaints Neurologic: no complaints, No headache Exam/Review of Systems Vital Signs Vitals VS - Last 72 Hours, by Label Date Time Temp Pulse Resp B/P Pulse Ox O2 Delivery O2 Flow Rate FiO2 06/17/16 17:00 81 06/17/16 16:00 98.8 88 19 145/66 97 06/17/16 12:11 79 06/17/16 12:00 98.1 78 18 144/82 96 06/17/16 08:26 75 06/17/16 07:50 97.9 83 17 172/91 98 06/17/16 04:26 98.1 74 20 156/79 99 06/17/16 04:15 69 06/17/16 00:03 78 06/17/16 00:00 98.6 83 20 135/73 98 Room Air 06/17/16 00:00 98.6 83 20 135/73 98 06/16/16 20:14 97.8 83 18 136/79 94 06/16/16 20:08 80 06/16/16 16:07 81 06/16/16 16:00 98.8 44 20 138/77 98 Room Air 06/16/16 12:04 75 06/16/16 12:00 97.6 77 20 136/83 98 Room Air 06/16/16 08:04 71 06/16/16 08:00 98.0 73 20 139/76 98 Room Air 06/16/16 04:00 98.3 73 20 147/78 98 Room Air 06/16/16 04:00 75 06/16/16 02:08 75 06/16/16 02:00 97.2 74 134/83 97 Room Air 06/15/16 23:39 98.2 78 18 148/84 98 06/15/16 16:48 98.2 96 18 174/88 98 Vital Signs Date Time Temp Pulse Resp B/P Pulse Ox O2 Delivery O2 Flow Rate FiO2 06/17/16 17:00 81 06/17/16 16:00 98.8 19 145/66 97 06/17/16 00:00 Room Air Intake and Output 06/16/16 06/16/16 06/17/16 15:00 23:00 07:00 Intake Total 500 ml 1780 ml 150 ml Output Total 300 ml Balance 200 ml 1780 ml 150 ml Exam Constitutional: alert, oriented, well developed Psych: nl mood/affect, no complaints Respiratory: clear to auscultation, normal air movement Cardiovascular: nl pulses, regular rate and rhythm, No edema, No murmurs/extra sounds, No rub Gastrointestinal: bowel sounds, nl liver, spleen, non-tender, soft, No mass, No rebound or guarding Musculoskeletal: nl extremities to inspection Extremities: normal pulses, No clubbing, No cyanosis, No edema Neurological: ELECTRICIAN BUS II-XII intact, nl mental status, nl speech, nl strength Results Result Diagram: 06/17/16 0620 06/17/16 1330 Results 24 hrs Laboratory Tests Test 06/17/16 06:20 06/17/16 06:45 06/17/16 13:30 Anion Gap 12 Basophils # 0.1 Basophils % 2.2 H Blood Urea Nitrogen 6 L Calcium Level 8.6 Carbon Dioxide Level 24 Chloride Level 99 Creatinine 0.60 Eosinophils # 0.2 Eosinophils % 4.5 Glucose Level 77 Hematocrit 30.4 L Hemoglobin 10.1 L Lymphocytes # 1.5 Lymphocytes % 28.8 Magnesium Level 1.7 Mean Corpuscular Hemoglobin 29.5 Mean Corpuscular Hemoglobin Concent 33.2 Mean Corpuscular Volume 89.0 Mean Platelet Volume 8.3 Monocytes # 0.8 Monocytes % 14.6 H Neutrophils # 2.6 Neutrophils % 49.9 Nucleated Red Blood Cells # 0.0 Nucleated Red Blood Cells % 0.0 Phosphorus Level 3.1 Platelet Count 403 Potassium Level 3.7 Random Cortisol 1.2 Red Blood Count 3.42 L Red Cell Distribution Width 14.3 Sodium Level 131 L 132 L White Blood Count 5.2 Urine Osmolality 323 Medications Medications Current Medications Benazepril HCl (Lotensin) 20 mg QAM PO Last administered on 06/17/16 08:23; Admin Dose 20 MG; Start 06/16/16 at 09:00 Famotidine (Pepcid) 20 mg BID PO Last administered on 06/17/16 08:23; Admin Dose 20 MG; Start 06/16/16 at 09:00 Ondansetron HCl (Zofran Inj) 4 mg Q6H PRN IV NAUSEA AND/OR VOMITING; Start at 03:00 Acetaminophen (Tylenol Tab) 650 mg Q6H PRN PO PAIN AND OR ELEVATED TEMP; Start 06/16/16 at 03:00 Hydralazine HCl (Apresoline) 10 mg Q4H PRN IV ELEVATED BLOOD PRESSURE; Start at 03:00 Hydrocortisone (Cortef) 20 mg AM PO ; Start 06/17/16 at 09:30 Hydrocortisone (Cortef) 10 mg QPM@1730 PO ; Start 06/18/16 at 17:30 Hydrocortisone (Cortef) 10 mg ONCE PO Last administered on 06/17/16 16:14; Admin Dose 10 MG; Start 06/17/16 at 16:00; Stop 06/17/16 at 20:00 KIANNA SUAZO MD Jun 17, 2016 19:36
[2016-06-18] VITALS (8 sets, daily range): BP systolic 136–144; BP diastolic 79–97; PULSE 79–94; RESP 18–19
[2016-06-18 07:54] LABS: BASOPHILS % 0.7 % (0.0-2.0); EOSINOPHILS # 0.2 10^3/ul (0.0-0.5); EOSINOPHILS % 3.2 % (0.0-7.0); HEMATOCRIT 31.2 % (37.0-47.0); HEMOGLOBIN 10.6 g/dl (12.0-16.0); LYMPHOCYTES # 1.6 10^3/ul (0.8-2.9); LYMPHOCYTES % 24.6 % (15.0-51.0); MEAN CORPUSCULAR HEMOGLOBIN 29.9 pg (29.0-33.0); MEAN CORPUSCULAR HGB CONC 33.9 g/dl (32.0-37.0); MEAN CORPUSCULAR VOLUME 88.3 fl (82.0-101.0); MEAN PLATELET VOLUME 7.7 fl (7.4-10.4); MONOCYTE # 0.7 10^3/ul (0.3-0.9); MONOCYTES % 10.8 % (0.0-11.0); NEUTROPHIL # 3.9 10^3/ul (1.6-7.5); NEUTROPHILS % 60.7 % (39.0-77.0); PLATELET COUNT 453 10^3/UL (140-440); RED BLOOD COUNT 3.53 10^6/ul (4.20-5.40); RED CELL DISTRIBUTION WIDTH 14.2 % (11.5-14.5); UNCORRECTED WBC 6.4 10^3/ul (4.8-10.8); WHITE BLOOD COUNT 6.4 10^3/ul (4.8-10.8)
[2016-06-18 07:57] LABS: POTASSIUM 3.7 mmol/L (3.5-5.1)
[2016-06-18 07:59] LABS: CREATININE 0.67 mg/dl (0.44-1.00)
[2016-06-18 08:00] LABS: CALCIUM 9.1 mg/dl (8.4-10.2); MAGNESIUM 1.9 mg/dl (1.7-2.5); PHOSPHORUS 3.2 mg/dl (2.5-4.9)
[2016-06-18 08:05] LABS: CONDITION 1
[2016-06-18] MEDS: BENAZEPRIL 20 MG TAB PO SCH (09:37)
[2016-06-18] MEDS: FAMOTIDINE 20 MG TAB PO SCH (09:37)
[2016-06-18] MEDS: HYDROCORTISONE 20 MG TAB PO SCH (09:38)
[2016-06-18] MEDS ORDERED: HYDR20TA PO ×2 (12:17→13:20)
[2016-06-18] MEDS ORDERED: BENA20TA48 PO (12:17)
[2016-06-18] MEDS ORDERED: HYDR5TAB2 PO ×2 (12:17→13:20)
--- NOTE | 2016-06-18 12:24 | PN ---
DATE: 06/18/2016 SUBJECTIVE: The patient is stable. No acute events overnight. No fevers, chills, nausea or vomiti ng. OBJECTIVE: VITAL SIGNS: Blood pressure is 144/87, respirations 19, pulse 77, temperature 98.5. HEENT: Head is normocephalic. NECK: Supple. HEART: Regular rate. LUNGS: Showed diminished breath sounds at the base. ABDOMEN: Soft, nontender to palpation. No rebound or guarding. EXTREMITIES: Negative for clubbing or cyanosis. No edema. DERMATOLOGIC: No rashes. MUSCULOSKELETAL: Have no joint effusion. NEUROLOGIC: No change in exam. MEDICATIONS: The patient's medications have been reviewed. LABORATORY DATA: Showed a BMP within normal limits. CBC shows a white count of 6.4, hemoglobin 10. 6, hematocrit 31.2, platelet count of 453. ASSESSMENT AND PLAN: 1. Hyponatremia. Etiology appears to be multifactorial secondary to syndrome of inappropriate anti diuretic hormone, with a possible component of cortisol deficiency. The patient's sodium levels hav e normalized with fluid restriction and after initiation of Cortef. At this point will continue the current medical management, continue free water restriction, monitor sodium levels closely. 2. Nausea and vomiting. Improved. Etiology is likely secondary to pituitary adenoma resection. C ontinue supportive care. 3. Secondary adrenal insufficiency. Etiology is secondary to pituitary resection. Continue Cortef . Follow up with endocrinology. 4. History of hypertension. Continue the current blood pressure regimen. 5. History of gastritis. Continue proton pump inhibitor. 6. Status post pituitary adenoma resection. Dictated By: MAYA HE/MRAK Conf#: [id number] DID#: [id number]
--- NOTE | 2016-06-18 12:59 | CONS ---
Date/Time of Note Date/Time of Note DATE: 06/18/16 TIME: 12:56 Assessment/Plan Assessment/Plan Problems: (1) Hyponatremia Status: Resolved (2) SIADH (syndrome of inappropriate ADH production) Status: Acute Comment: Uncertain if this is resolved or not but sodium completely normalized with fluid restriction and hydrocortisone. Would advise pt. continue some fluid restriction after discharge until f/u w/ endo. (3) Secondary adrenal insufficiency Status: Acute Comment: Started hydrocortisone 20/10 last night and continuing this am. Pt. cannot feel the difference but reports feels well. Would continue this until pt. follows up w/ outpt. endo who can evaluate her. Consultation Date/Type/Reason Admit Date/Time Jun 15, 2016 at 22:57 Initial Consult Date 06/16/16 Type of Consultation: Endocrinology Reason for Consultation Hyponatremia following transsphenoidal craniotomy Referring Provider: KARSON FERMIN MD 24 HR Interval Summary Constitutional: improved (feels 100% better. Back to normal), no complaints Detailed Summary Respiratory: no complaints Cardiovascular: no complaints Gastrointestinal: no complaints Genitourinary: no complaints Musculoskeletal: no complaints Neurologic: no complaints Exam/Review of Systems Vital Signs Vitals VS - Last 72 Hours, by Label Date Time Temp Pulse Resp B/P Pulse Ox O2 Delivery O2 Flow Rate FiO2 06/18/16 12:19 84 06/18/16 12:00 97.4 62 19 137/91 98 06/18/16 08:39 81 06/18/16 08:04 98.5 77 19 144/87 97 06/18/16 04:40 98.4 82 18 141/79 97 06/18/16 04:12 79 06/18/16 00:53 94 06/18/16 00:50 98.4 102 18 136/97 94 06/17/16 20:31 105 06/17/16 20:18 98.0 104 18 147/59 95 06/17/16 17:00 81 06/17/16 16:00 98.8 88 19 145/66 97 06/17/16 12:11 79 06/17/16 12:00 98.1 78 18 144/82 96 06/17/16 08:26 75 06/17/16 07:50 97.9 83 17 172/91 98 06/17/16 04:26 98.1 74 20 156/79 99 06/17/16 04:15 69 06/17/16 00:03 78 06/17/16 00:00 98.6 83 20 135/73 98 Room Air 06/17/16 00:00 98.6 83 20 135/73 98 06/16/16 20:14 97.8 83 18 136/79 94 06/16/16 20:08 80 06/16/16 16:07 81 06/16/16 16:00 98.8 44 20 138/77 98 Room Air 06/16/16 12:04 75 06/16/16 12:00 97.6 77 20 136/83 98 Room Air 06/16/16 08:04 71 06/16/16 08:00 98.0 73 20 139/76 98 Room Air 06/16/16 04:00 98.3 73 20 147/78 98 Room Air 06/16/16 04:00 75 06/16/16 02:08 75 06/16/16 02:00 97.2 74 134/83 97 Room Air 06/15/16 23:39 98.2 78 18 148/84 98 06/15/16 16:48 98.2 96 18 174/88 98 Vital Signs Date Time Temp Pulse Resp B/P Pulse Ox O2 Delivery O2 Flow Rate FiO2 06/18/16 12:19 84 06/18/16 12:00 97.4 19 137/91 98 06/17/16 00:00 Room Air Intake and Output 06/17/16 06/17/16 06/18/16 15:00 23:00 07:00 Intake Total 400 ml 480 ml Output Total 600 ml Balance 400 ml -120 ml Exam Constitutional: alert, oriented, well developed Psych: nl mood/affect, no complaints Respiratory: clear to auscultation, normal air movement Cardiovascular: nl pulses, regular rate and rhythm, No edema, No murmurs/extra sounds, No rub Gastrointestinal: bowel sounds, nl liver, spleen, non-tender, soft, No mass, No rebound or guarding Musculoskeletal: nl extremities to inspection Extremities: normal pulses, No clubbing, No cyanosis, No edema Neurological: STUDENT DEAN II-XII intact, nl mental status, nl speech, nl strength Results Result Diagram: 06/18/16 0655 06/18/16 0655 Results 24 hrs Laboratory Tests Test 06/17/16 13:30 06/18/16 06:55 Sodium Level 132 L 139 Anion Gap 15 Basophils # 0.0 Basophils % 0.7 Blood Urea Nitrogen 11 Calcium Level 9.1 Carbon Dioxide Level 26 Chloride Level 102 Creatinine 0.67 Eosinophils # 0.2 Eosinophils % 3.2 Glucose Level 79 Hematocrit 31.2 L Hemoglobin 10.6 L Lymphocytes # 1.6 Lymphocytes % 24.6 Magnesium Level 1.9 Mean Corpuscular Hemoglobin 29.9 Mean Corpuscular Hemoglobin Concent 33.9 Mean Corpuscular Volume 88.3 Mean Platelet Volume 7.7 Monocytes # 0.7 Monocytes % 10.8 Neutrophils # 3.9 Neutrophils % 60.7 Nucleated Red Blood Cells # 0.0 Nucleated Red Blood Cells % 0.0 Phosphorus Level 3.2 Platelet Count 453 H Potassium Level 3.7 Red Blood Count 3.53 L Red Cell Distribution Width 14.2 White Blood Count 6.4 # Medications Medications Current Medications Benazepril HCl (Lotensin) 20 mg QAM PO Last administered on 06/18/16 09:37; Admin Dose 20 MG; Start 06/16/16 at 09:00 Famotidine (Pepcid) 20 mg BID PO Last administered on 06/18/16 09:37; Admin Dose 20 MG; Start 06/16/16 at 09:00 Ondansetron HCl (Zofran Inj) 4 mg Q6H PRN IV NAUSEA AND/OR VOMITING; Start at 03:00 Acetaminophen (Tylenol Tab) 650 mg Q6H PRN PO PAIN AND OR ELEVATED TEMP; Start 06/16/16 at 03:00 Hydralazine HCl (Apresoline) 10 mg Q4H PRN IV ELEVATED BLOOD PRESSURE; Start at 03:00 Hydrocortisone (Cortef) 20 mg AM PO Last administered on 06/18/16 09:38; Admin Dose 20 MG; Start 06/17/16 at 09:30 Hydrocortisone (Cortef) 10 mg QPM@1730 PO ; Start 06/18/16 at 17:30 KIANNA SUAZO MD Jun 18, 2016 12:59
--- NOTE | 2016-06-18 13:29 | PDOCDIS ---
Discharge Instructions DIAGNOSIS Discharge Diagnosis: 1. SIADH 2. Renal insufficiency 3. Hyponatremia CONDITION Patient Condition: Stable HOME CARE INSTRUCTIONS: Special Diet: Regular ACTIVITY: Activity Restrictions: Slowly Increase Activity Rest between Activity FOLLOW UP/APPOINTMENTS Appointments 1. Follow up with your cook sauce within one week 2. Follow up with your primary care provider in 1-2 weeks PHUC LOZANO Jun 18, 2016 13:29
--- NOTE | 2016-06-18 14:17 | DS ---
Date/Time of Note Date/Time of Note DATE: 06/18/16 TIME: 14:16 Discharge Summary Admission/Discharge Info Admit Date/Time Jun 15, 2016 at 22:57 Discharge Date/Time Final Diagnosis 1. Cephalgia. 2. History of pituitary adenoma status post resection 2 weeks ago. 3. Hyponatremia from SIADH 4. History of gastritis 5. History of major depression. 6. Adrenal insufficiency Patient Condition: Stable Consults 1. Dr. Lucas Clark 2. Dr. Bairon Hernandez [facility] This is a 75 year old female history of hypertension, gastritis, arthritis, depression, pituitary adenoma status post surgery 2 weeks ago who came to [facility] due to reports of headache with nausea and nonbloody nonbilious vomiting. Of note patient also has had diffuse headache since her recent surgery for pituitary surgery. She denied any weakness or numbness or seizure activity. She did have a CT scan of the brain done at [facility] that did show moderate to severe inflammatory change of sphenoid sinus. She was also noted to be hyponatremic with sodium as low as 124. Patient was seen by hedge fund principal as well as by caustics loader. Patient did have her cortisol level checked and was noted that she did have adrenal insufficiency with noted SIADH. She was placed on fluid restriction and she was placed on hydrocortisone oral tablet. She did respond well to therapy. During the course of stay her sodium levels did start to normalize. She was otherwise optimized medically. She was continued on analgesics for her cephalgia. She is continued on PPI medication for her history of gastritis. She was educated to follow-up with her caustics loader as outpatient. During the course of stay she did improve. The plan of care was discussed with the patient and patient did verbalize understanding. On the day of discharge patient was in stable condition Discussed but of care with Dr. Cuevas Disposition: Home Discharge process time is 40 minutes Home Meds Active Scripts Benazepril Hcl* (Benazepril Hcl*) 20 Mg Tablet, 20 MG PO QAM, #30 TAB Prov:PHUC LOZANO 06/18/16 Reported Medications Naproxen* (Naproxen*) 220 Mg Tablet, 220 MG PO DAILY Y for PAIN, TAB 06/15/16 Omeprazole* (Omeprazole*) 20 Mg Capsule.dr 20 MG PO DAILY Y for PRN, #30 CAP 06/15/16 Follow-up Plan CONDITION Patient Condition: Stable HOME CARE INSTRUCTIONS: Special Diet: Regular ACTIVITY: Activity Restrictions: Slowly Increase Activity Rest between Activity FOLLOW UP/APPOINTMENTS Appointments 1. Follow up with your caustics loader within one week 2. Follow up with your primary care provider in 1-2 weeks Pending Labs Laboratory Tests Test 06/18/16 06:55 Anion Gap 15 (8-16) Basophils # 0.010^3/ul (0.0-0.1) Basophils % 0.7% (0.0-2.0) Blood Urea Nitrogen 11mg/dl (7-20) Calcium Level 9.1mg/dl (8.4-10.2) Carbon Dioxide Level 26mmol/L (21-31) Chloride Level 102mmol/L (97-110) Creatinine 0.67mg/dl (0.44-1.00) Eosinophils # 0.210^3/ul (0.0-0.5) Eosinophils % 3.2% (0.0-7.0) Glucose Level 79mg/dl (70-220) Hematocrit 31.2% (37.0-47.0) Hemoglobin 10.6g/dl (12.0-16.0) Lymphocytes # 1.610^3/ul (0.8-2.9) Lymphocytes % 24.6% (15.0-51.0) Magnesium Level 1.9mg/dl (1.7-2.5) Mean Corpuscular Hemoglobin 29.9pg (29.0-33.0) Mean Corpuscular Hemoglobin Concent 33.9g/dl (32.0-37.0) Mean Corpuscular Volume 88.3fl (82.0-101.0) Mean Platelet Volume 7.7fl (7.4-10.4) Monocytes # 0.710^3/ul (0.3-0.9) Monocytes % 10.8% (0.0-11.0) Neutrophils # 3.910^3/ul (1.6-7.5) Neutrophils % 60.7% (39.0-77.0) Nucleated Red Blood Cells # 0.010^3/ul (0.0-0.0) Nucleated Red Blood Cells % 0.0/100WBC (0.0-0.0) Phosphorus Level 3.2mg/dl (2.5-4.9) Platelet Count 29023^3/UL (140-440) Potassium Level 3.7mmol/L (3.5-5.1) Red Blood Count 3.5310^6/ul (4.20-5.40) Red Cell Distribution Width 14.2% (11.5-14.5) Sodium Level 139mmol/L (135-144) White Blood Count 6.410^3/ul (4.8-10.8) PHUC LOZANO Jun 18, 2016 14:17
[2016-06-18] MEDS ORDERED: HYDROCORTISONE 5 MG TAB PO SCH (17:30)
== END 2016-06-18 16:00 | disposition home or self-care (01) | DRG 103 ==
LOC: FTE 16:15 → MS4 22:57
PROVIDERS: ADMIT Internal Medicine; ATTEND Internal Medicine
DX: R51 Headache (principal); E27.40 Unspecified adrenocortical insufficiency; E22.2 Syndrome of inappropriate secretion of antidiuretic hormone; E87.1 Hypo-osmolality and hyponatremia; E83.42 Hypomagnesemia; I10 Essential (primary) hypertension; Z88.0 Allergy status to penicillin; F32.9 Major depressive disorder, single episode, unspecified
CPT/HCPCS: 36415; 70450; 80048; 80053; 81001; 81003; 82024; 82043; 82533; 83690; 83735; 83930; 83935; 84100; 84155; 84295; 84300; 84436; 84443; 84479; 84560; 85025; 87086; 96374; 97162; J2405; J7030